=== PATIENT | female | born 1965 | race African-American/Black ===

== ENCOUNTER 2017-02-18 11:25 | Outpatient (CLI) | payer OTHER ==
--- NOTE | 2017-02-18 12:46 | XRay Report ---
RIGHT SHOULDER: History: Pain, arthritis. Routine views demonstrate normal bony and soft tissue structures with normal joint alignment of the shoulder. IMPRESSION: Normal study.
== END 2017-02-18 11:26 | disposition home or self-care (01) ==
LOC: XRAY 11:25
PROVIDERS: ATTEND Internal Medicine
DX: M25.512 Pain in left shoulder (principal); F32.9 Major depressive disorder, single episode, unspecified; F99 Mental disorder, not otherwise specified; R41.840 Attention and concentration deficit; R41.3 Other amnesia; G47.9 Sleep disorder, unspecified; G64 Other disorders of peripheral nervous system; H93.19 Tinnitus, unspecified ear; M54.2 Cervicalgia; M54.9 Dorsalgia, unspecified; Z87.39 Personal history of other diseases of the musculoskeletal system and connective tissue